=== PATIENT | male | born 1980 | race Caucasian/White ===

== ENCOUNTER → 2018-11-22 | Outpatient (CLI) | payer BC ==
--- NOTE | 2018-11-22 10:58 | RAD ---
EXAM: Bilateral knees, 3 views; bilateral ankles, 3 views. HISTORY: Pain. COMPARISON: None. FINDINGS: Bilateral knees: 3 views of both knees are obtained. There is no fracture, dislocation or subluxation. There is no joint effusion. There is minimal right lateral patellofemoral compartment narrowing. Bilateral ankles: 3 views of both ankles are obtained. There is no fracture, dislocation or subluxation. There is no osteochondral lesion. IMPRESSION: No acute osseous finding. Electronically signed by: Kimberly Baugh MD (11/22/2018 10:53 AM) [place] [id number]
== END | disposition home or self-care (01) ==
LOC: RAD 10:14
PROVIDERS: ATTEND Orthopaedic Surgery Sports Medicine
DX: M25.561 Pain in right knee (principal); M25.562 Pain in left knee; M25.572 Pain in left ankle and joints of left foot; M25.571 Pain in right ankle and joints of right foot
CPT/HCPCS: 73562; 73610

== ENCOUNTER → 2021-01-09 | Outpatient (CLI) | payer BC ==
--- NOTE | 2021-01-09 09:21 | RAD ---
INDICATION: Reason: RIGHT KNEE PAIN / Spl. Instructions: / History: COMPARISON: November 22, 2018 IMPRESSION: Right knee: 2 views obtained. Obliquely oriented lucency at the proximal tibia. Most likely secondary to overlap of structures rather than fracture given that this was also seen on prior. No definite ac carlitos fracture line or dislocation. There is some degenerative changes identified with early osteophyte formation affecting all 3 compartments. Small amount of edema at Hoffa's fat pad. Electronically signed by: Mark Landis MD (01/09/2021 9:18 AM) [id number]
== END ==
LOC: PMG 08:41
DX: M17.11 Unilateral primary osteoarthritis, right knee (principal); M25.761 Osteophyte, right knee; M79.4 Hypertrophy of (infrapatellar) fat pad
CPT/HCPCS: 73560